=== PATIENT | female | born 1950 | race Caucasian/White ===

== ENCOUNTER 2020-06-19 01:04 | Inpatient (IN) | payer OTHER ==
[~2020-06-19] VITALS: Ht 152.4 cm; Wt 86.2 kg
--- NOTE | 2020-06-19 01:09 | NUR ---
THIS IS A 69F BIB EMS FROM [facility]. PT PRESENTED THERE WITH C/O FATIGUE [id number]. PT BP AT PREVIOUS FACILITY WAS 60'S/PALP. PT WAS GIVEN 2L OF LR, AND LEVO DRIP STARTED. PER CAREFLIGHT DRIP NOW RUNNING AT 19ML/HR COCENTRATION OF 8MG IN 250NS. PT A/O UPON ARRIVAL CONNECTED TO ALL MONITORING.
--- NOTE | 2020-06-19 01:13 | NUR ---
ERP AT BEDSIDE FOR EVAL AND POC
--- NOTE | 2020-06-19 01:13 | NUR ---
PER DR ESTRADA, DC LEVO FROM OUTSIDE FACILITY AND START NEW GTT IF INDICATED
--- NOTE | 2020-06-19 01:19 | NUR ---
PRIOR TO ARRIVAL PT GIVEN ZOSYN, VANCO, LEVO, LR, ATIVAN. CULTURES ALSO DRAWN AT PREVIOUS FACILITY.
[2020-06-19] MEDS ORDERED: LEVOTHYROXINE (01:27)
[2020-06-19] MEDS ORDERED: MONTELUKAST (01:27)
[2020-06-19] MEDS ORDERED: LOSARTAN (01:27)
[2020-06-19] MEDS ORDERED: METFORMIN PO (01:27)
[2020-06-19] MEDS ORDERED: IBUPROFEN (01:27)
[2020-06-19] MEDS ORDERED: SIMVASTATIN (01:27)
[2020-06-19] MEDS ORDERED: ALBUTEROL (01:27)
[2020-06-19] MEDS ORDERED: FLUTICASONE (01:27)
[2020-06-19] MEDS ORDERED: RABEPRAZOLE (01:27)
--- NOTE | 2020-06-19 01:28 | NUR ---
LAB AT BEDSIDE AT THIS TIME
[2020-06-19] MEDS ORDERED: SODIUM CHLORIDE 0.9% 1,000ML IVBOLUS ONE (01:30)
--- NOTE | 2020-06-19 01:38 | NUR ---
PHARMACY CALLED FOR LEVO DRIP, WILL SEND AFTER PHARM VERIFIES
--- NOTE | 2020-06-19 01:39 | NUR ---
PER DR ESTRADA IF BP TRENDS DOWN START LEVO NIESHA
--- NOTE | 2020-06-19 01:40 | NUR ---
PT BECOMING SLIGHTLY MORE DROWSY AND SLOWER TO RESPOND TO QUESTIONS BUT STILL RESPONDING TO VERBAL STIMULI
[2020-06-19 01:46] LABS: MEAN CORPUSCULAR HEMOGLOBIN 26.6 pg (27.0-34.8); MEAN CORPUSCULAR HGB CONC 30.6 g/dL (32.4-35.8); MEAN PLATELET VOLUME 7.8 fL (7.4-10.4); PLATELET COUNT 253 x10^3/uL (130-400); RED BLOOD COUNT 4.37 x10^6/uL (3.82-5.3); RED CELL DISTRIBUTION WIDTH 16.3 % (9.6-15.2)
--- NOTE | 2020-06-19 01:50 | NUR ---
PT BP 87/30 AT THIS TIME Addendum: 06/19/20 at 0153 by [email or web address] LEVO GTT STARTED AT THIS TIME BP IS TRENDING DOWN
[2020-06-19] MEDS: NOREPINEPHRINE 8 MG in SODIUM CHLORIDE 0.9% 242 ML IV PRN ×3 (01:51→20:16)
[2020-06-19 01:58] LABS: MD YES
[2020-06-19 02:01] LABS: ALBUMIN 2.9 g/dL (3.4-5.0); ANION GAP 21 mmol/L (5-15); CALCIUM 8.4 mg/dL (8.5-10.1); CHLORIDE 105 mmol/L (98-107); CREATININE 2.11 mg/dL (0.55-1.02)
[2020-06-19 02:03] LABS: ALKALINE PHOSPHATASE 215 U/L (45-117); TOTAL PROTEIN 6.2 g/dL (6.4-8.2)
--- NOTE | 2020-06-19 02:09 | NUR ---
SON AT BEDSIDE FOR SUPPORT. PT RESTING ON GURNEY HOWEVER VERY DROWSY AT THIS TIME
--- NOTE | 2020-06-19 02:13 | NUR ---
URINE WALKED TO LAB
[2020-06-19] MEDS ORDERED: LACTATED RINGERS 1,000 ML IVBOLUS ONE (02:30)
--- NOTE | 2020-06-19 02:36 | NUR ---
building services technician Kristi requested a new order for AST and ALT for a redraw due insufficent orginal blood draw amount. Provider notified for new order.
[2020-06-19 02:38] LABS: BAND#(MANUAL) 1.57 x10^3/uL; BANDS%(MANUAL) 4 % (0-7); LYMPH#(MANUAL) 1.96 x10^3/uL (1-3.4); LYMPHS% (MANUAL) 5 % (22-44); MONOS#(MANUAL) 3.14 x10^3/uL (0.3-2.7); MONOS% (MANUAL) 8 % (2-9); SEG#(MANUAL) 32.54 x10^3/uL (1.8-6.8); SEGS% (MANUAL) 83 % (42-75)
--- NOTE | 2020-06-19 02:38 | NUR ---
ERP AT BEDSIDE FOR POC AND DISCUSSION WITH FAMILY
[2020-06-19 02:39] LABS: ANISOCYTOSIS 1+; OVALOCYTES 1+
[2020-06-19 02:40] LABS: CRENATED 1+; POLYCHROMASIA 1+
[2020-06-19 02:47] LABS: <PLATELET ESTIMATE> ADEQUATE; <PLT MORPHOLOGY> NORMAL PLT MORPH
--- NOTE | 2020-06-19 02:51 | NUR ---
PT AND FAMILY EDUCATED ON NEED FOR CENTRAL LINE PLACEMENT, PT AND FAMILY AGREE
[2020-06-19 02:56] LABS: MICROSCOPIC INDICATED
--- NOTE | 2020-06-19 02:56 | NUR ---
DR. BELLA AT BEDSIDE FOR ADMIT
[2020-06-19] MEDS ORDERED: HYDROCORTISONE 100 MG INJ. IVPush ONE (03:00)
--- NOTE | 2020-06-19 03:08 | NUR ---
XRAY AT BEDSIDE AT THIS TIME, PT BP INC TO 116/90, LEVO TITRATED DOWN
[2020-06-19] MEDS ORDERED: HYDROCORTISONE 100 MG INJ. ONE (03:09)
--- NOTE | 2020-06-19 03:19 | NUR ---
PT REPOSITIONED TO COMFORT AT THIS TIME
[2020-06-19 03:31] LABS: ALANINE AMINOTRANSFERASE 7495 U/L (12-78)
--- NOTE | 2020-06-19 03:36 | NUR ---
PER DR. ESTRADA HOLD OFF ON CENTRAL LINE FOR NOW. PT RESTING ON GURNEY AT THIS TIME. SON AT BEDSIDE
[2020-06-19] MEDS ORDERED: BISACODYL 10 MG SUPP PR PRN (04:00)
[2020-06-19] MEDS ORDERED: ONDANSETRON 2MG/ML, 2ML IVPush PRN (04:00)
[2020-06-19] MEDS ORDERED: DOCUSATE 100 MG CAPSULE PO PRN (04:00)
[2020-06-19] MEDS ORDERED: CEFTRIAXONE 2 GM in DEXTROSE 5% 50 ML IVPB SCH (04:00)
[2020-06-19] MEDS ORDERED: hydrALAzine 20 MG/ML, 1ML IVPush PRN (04:00)
[2020-06-19] MEDS ORDERED: OXYcodone IR 5MG TABLET PO PRN (04:00)
[2020-06-19] MEDS ORDERED: ACETAMINOPHEN 325 MG TABLET PO PRN (04:00)
[2020-06-19] MEDS ORDERED: PROMETHAZINE 25 MG/ML, 1ML IM PRN (04:00)
[2020-06-19] MEDS ORDERED: POLYETHYLENE GLYCOL 17 GM PACKET PO PRN (04:00)
[2020-06-19] MEDS ORDERED: SODIUM CHLORIDE 0.9% 1,000 ML IV SCH (04:00)
[2020-06-19] MEDS ORDERED: ONDANSETRON ODT 4 MG PO PRN (04:00)
[2020-06-19] MEDS: PIPERACILLIN/TAZO 2.25 GM in DEXTROSE 5% 50 ML IVPB SCH ×3 (04:15→17:38)
--- NOTE | 2020-06-19 04:16 | NUR ---
LEVO TITRATED, ABX STARTED AT THIS TIME, PT INTERACTING WITH STAFF AND SON APPROP Addendum: 06/19/20 at 0431 by [email or web address] ABX SWITCHED PER SHAYNE MCCALLITING NEW MEDS
--- NOTE | 2020-06-19 04:30 | NUR ---
REPORT TO LETTY OSBORNE PT READY FOR TRANSFER OF CARE AFTER LAB
[2020-06-19 05:13] VITALS: BP 113/51
[2020-06-19] MEDS: HEPARIN 5,000 UNITS/ML, 1ML SQ SCH ×2 (05:56→12:09)
[2020-06-19] MEDS: HYDROCORTISONE 100 MG INJ. IVPush SCH ×3 (05:56→21:28)
[2020-06-19] MEDS: INSULIN LISPRO 100 UNITS/ML, PEN SQ-INSULIN SCH ×4 (07:00→21:28)
[2020-06-19 07:34] LABS: ALBUMIN 2.8 g/dL (3.4-5.0); ANION GAP 23 mmol/L (5-15); CALCIUM 8.3 mg/dL (8.5-10.1); CHLORIDE 105 mmol/L (98-107)
[2020-06-19 07:37] LABS: ALKALINE PHOSPHATASE 210 U/L (45-117); BILIRUBIN,TOTAL 3.4 mg/dL (0.2-1.0); CREATINE KINASE, TOTAL 521 U/L (26-192); CREATININE 2.21 mg/dL (0.55-1.02); TOTAL PROTEIN 6.1 g/dL (6.4-8.2); TROPONIN I 0.483 ng/mL (0.000-0.045)
[2020-06-19] MEDS ORDERED: DEXTROSE 50%, 50ML SYRINGE ONE (07:51)
[2020-06-19] MEDS: SODIUM BICARBONATE 8.4% 150 MEQ in DEXTROSE 5% 1,000 ML IV SCH ×2 (07:55→15:54)
[2020-06-19] MEDS ORDERED: SODIUM BICARBONATE 1 MEQ/ML, 50ML VIAL IVPush ONE (08:00)
[2020-06-19] MEDS ORDERED: SODIUM BICARB 8.4%, 50ML SYRINGE ONE (08:12)
[2020-06-19] MEDS ORDERED: SODIUM BICARB 8.4%, 50ML SYRINGE IVPush ONE (08:30)
[2020-06-19] MEDS ORDERED: THIAMINE 500 MG in SODIUM CHLORIDE 0.9% 50 ML IV ONE (09:00)
[2020-06-19 09:19] LABS: ALANINE AMINOTRANSFERASE 9717 U/L (12-78)
[2020-06-19] MEDS ORDERED: FENTANYL PF 100 MCG/2ML IVPush ONE (10:30)
[2020-06-19 12:23] LABS: INTERNATIONAL NORMALIZED RATIO 2.82 (0.93-1.1); PROTHROMBIN TIME 29.6 Seconds (9.6-11.5)
[2020-06-19] MEDS ORDERED: PHYTONADIONE 5 MG in SODIUM CHLORIDE 0.9% 50 ML IV ONE (13:00)
[2020-06-19 13:47] LABS: MEAN CORPUSCULAR HEMOGLOBIN 26.4 pg (27.0-34.8); MEAN CORPUSCULAR HGB CONC 30.4 g/dL (32.4-35.8); MEAN PLATELET VOLUME 8.5 fL (7.4-10.4); PLATELET COUNT 85 x10^3/uL (130-400); RED BLOOD COUNT 3.55 x10^6/uL (3.82-5.3); RED CELL DISTRIBUTION WIDTH 16.1 % (9.6-15.2)
[2020-06-19] MEDS ORDERED: DESMOPRESSIN IVPB ONE (14:00)
[2020-06-19] MEDS ORDERED: SODIUM CHLORIDE 0.9% IVPB ONE (14:00)
[2020-06-19 14:03] LABS: CHLORIDE 101 mmol/L (98-107)
[2020-06-19 14:12] LABS: MD YES
[2020-06-19 14:18] LABS: BAND#(MANUAL) 2.62 x10^3/uL; BANDS%(MANUAL) 6 % (0-7); LYMPH#(MANUAL) 0.44 x10^3/uL (1-3.4); LYMPHS% (MANUAL) 1 % (22-44); MONOS#(MANUAL) 0.87 x10^3/uL (0.3-2.7); MONOS% (MANUAL) 2 % (2-9); SEG#(MANUAL) 39.77 x10^3/uL (1.8-6.8); SEGS% (MANUAL) 91 % (42-75)
[2020-06-19 14:19] LABS: ANISOCYTOSIS 1+
[2020-06-19 14:20] LABS: <PLATELET ESTIMATE> DECREASED; <PLT MORPHOLOGY> NORMAL PLT MORPH; HYPOCHROMIA 1+; OVALOCYTES 1+; POLYCHROMASIA 1+
[2020-06-19 14:23] LABS: PH, VENOUS 7.122 pH (7.320-7.420)
[2020-06-19] MEDS ORDERED: FENTANYL PF 100 MCG/2ML ONE (14:33)
[2020-06-19 14:42] LABS: ALANINE AMINOTRANSFERASE 9371 U/L (12-78); ALBUMIN 2.5 g/dL (3.4-5.0); ALKALINE PHOSPHATASE 207 U/L (45-117); ANION GAP 23 mmol/L (5-15); BILIRUBIN,TOTAL 3.2 mg/dL (0.2-1.0); CREATININE 2.46 mg/dL (0.55-1.02); TOTAL PROTEIN 5.5 g/dL (6.4-8.2); TROPONIN I 0.779 ng/mL (0.000-0.045)
[2020-06-19] MEDS ORDERED: ETOMIDATE 20 MG/10 ML IVPush ONE (15:00)
[2020-06-19] MEDS ORDERED: MIDAZOLAM HCL 50 MG in SODIUM CHLORIDE 0.9% 40 ML IV PRN ×2 (15:00→16:30)
[2020-06-19] MEDS ORDERED: PROPOFOL 100 ML IV PRN (15:00)
[2020-06-19] MEDS ORDERED: MIDAZOLAM 1 MG/ML, 5ML IVPush ONE (15:00)
[2020-06-19 15:15] LABS: D-DIMER 27.7 ug/mlFEU (0.00-0.52)
[2020-06-19] MEDS ORDERED: PHARMACY MAY ADJ FOR RENAL FX MC SCH (16:30)
[2020-06-19] MEDS ORDERED: SENNA/DOCUSATE TABLET NG PRN (16:30)
[2020-06-19] MEDS ORDERED: DEXTROSE 50%, 50ML SYRINGE IVPush PRN (16:30)
[2020-06-19] MEDS ORDERED: FENTANYL PF 100 MCG/2ML IVPush PRN (16:30)
[2020-06-19] MEDS ORDERED: LIDOCAINE-MPF 1%, 2ML ENDO PRN (16:30)
[2020-06-19] MEDS ORDERED: DEXTROSE 4 GM TAB.CHEW PO PRN (16:30)
[2020-06-19] MEDS ORDERED: GLUCAGON 1 MG IM PRN (16:30)
[2020-06-19] MEDS: VASOPRESSIN 20 UNIT in SODIUM CHLORIDE 0.9% 99 ML IV PRN (17:24)
[2020-06-19 18:15] LABS: PH, VENOUS 7.154 pH (7.320-7.420)
[2020-06-19] MEDS: SODIUM CHLORIDE FLUSH 10ML SYR IVF SCH (21:28)
[2020-06-19 21:58] LABS: MEAN CORPUSCULAR HEMOGLOBIN 26.4 pg (27.0-34.8); MEAN PLATELET VOLUME 8.4 fL (7.4-10.4); PLATELET COUNT 57 x10^3/uL (130-400); RED BLOOD COUNT 3.52 x10^6/uL (3.82-5.3); RED CELL DISTRIBUTION WIDTH 16.7 % (9.6-15.2)
[2020-06-19 22:04] LABS: MD YES
[2020-06-19 23:08] LABS: ANISOCYTOSIS 1+; BAND#(MANUAL) 0.43 x10^3/uL; BANDS%(MANUAL) 1 % (0-7); BASOS#(MANUAL) 0.43 x10^3/uL (0-0.1); BASOS% (MANUAL) 1 % (0-1); HYPOCHROMIA 1+; LYMPH#(MANUAL) 2.57 x10^3/uL (1-3.4); LYMPHS% (MANUAL) 6 % (22-44); MONOS#(MANUAL) 0.86 x10^3/uL (0.3-2.7); MONOS% (MANUAL) 2 % (2-9); MYELOCYTES# (MANUAL) 0.43 x10^3/uL (0-0); MYELOCYTES% (MANUAL) 1 % (0-0); OVALOCYTES 1+; POLYCHROMASIA 1+; SEG#(MANUAL) 38.09 x10^3/uL (1.8-6.8); SEGS% (MANUAL) 89 % (42-75)
[2020-06-19 23:09] LABS: <PLATELET ESTIMATE> DECREASED; <PLT MORPHOLOGY> NORMAL PLT MORPH; CRENATED 1+; SCHISTOCYTES 1+
[2020-06-20] MEDS: SODIUM BICARBONATE 8.4% 150 MEQ in DEXTROSE 5% 1,000 ML IV SCH ×2 (00:24→09:47)
[2020-06-20] MEDS ORDERED: NOREPINEPHRINE 32 MG in SODIUM CHLORIDE 0.9% 218 ML IV PRN (00:30)
[2020-06-20] MEDS ORDERED: NOREPINEPHRINE 32 MG in SODIUM CHLORIDE 0.9% 250 ML IV PRN (00:30)
[2020-06-20] MEDS: PIPERACILLIN/TAZO 2.25 GM in DEXTROSE 5% 50 ML IVPB SCH ×2 (02:15→09:46)
[2020-06-20 03:49] LABS: MEAN CORPUSCULAR HEMOGLOBIN 26.7 pg (27.0-34.8); MEAN CORPUSCULAR HGB CONC 31.1 g/dL (32.4-35.8); MEAN PLATELET VOLUME 8.4 fL (7.4-10.4); PLATELET COUNT 61 x10^3/uL (130-400); RED BLOOD COUNT 3.44 x10^6/uL (3.82-5.3); RED CELL DISTRIBUTION WIDTH 15.8 % (9.6-15.2)
[2020-06-20 03:53] LABS: ALBUMIN 2.3 g/dL (3.4-5.0); ANION GAP 24 mmol/L (5-15); CALCIUM 6.3 mg/dL (8.5-10.1); CHLORIDE 98 mmol/L (98-107); CREATININE 1.98 mg/dL (0.55-1.02); INTERNATIONAL NORMALIZED RATIO 3.19 (0.93-1.1); PROTHROMBIN TIME 33.4 Seconds (9.6-11.5)
[2020-06-20] MEDS: HYDROCORTISONE 100 MG INJ. IVPush SCH (04:03)
[2020-06-20 04:20] LABS: ALANINE AMINOTRANSFERASE 10207 U/L (12-78); ALKALINE PHOSPHATASE 283 U/L (45-117); BILIRUBIN,TOTAL 3.3 mg/dL (0.2-1.0); CHOL/HDL RATIO 4.5; CHOLESTEROL, TOTAL 67 mg/dL (140-239); HDL CHOL % 22 % (28-40); HDL CHOLESTEROL (DIRECT) 15 mg/dL (40-60); LDL CHOLESTEROL,CALCULATED 13 mg/dL (54-169); LDL/HDL RATIO 0.9 (0.5-3.0); TOTAL PROTEIN 4.8 g/dL (6.4-8.2); TRIGLYCERIDES 195 mg/dL (50-200); VLDL CHOLESTEROL 39 mg/dL (0-25)
[2020-06-20 05:24] LABS: MD YES
[2020-06-20 05:29] LABS: ANISOCYTOSIS 1+; BAND#(MANUAL) 3.89 x10^3/uL; BANDS%(MANUAL) 11 % (0-7); LYMPH#(MANUAL) 0.35 x10^3/uL (1-3.4); LYMPHS% (MANUAL) 1 % (22-44); MONOS#(MANUAL) 2.48 x10^3/uL (0.3-2.7); MONOS% (MANUAL) 7 % (2-9); SEG#(MANUAL) 28.67 x10^3/uL (1.8-6.8); SEGS% (MANUAL) 81 % (42-75)
[2020-06-20 05:30] LABS: CRENATED 1+; HYPOCHROMIA 1+; OVALOCYTES 1+; POLYCHROMASIA 1+
[2020-06-20 05:33] LABS: <PLATELET ESTIMATE> DECREASED; LARGE PLATELETS 1+
[2020-06-20] MEDS ORDERED: PHYTONADIONE 10 MG in SODIUM CHLORIDE 0.9% 50 ML IV ONE (06:30)
[2020-06-20] MEDS ORDERED: MAGNESIUM SULFATE PMX 2GM/50ML 50 ML IV ONE (06:30)
[2020-06-20] MEDS: INSULIN LISPRO 100 UNITS/ML, PEN SQ-INSULIN SCH ×2 (07:00→11:00)
[2020-06-20] MEDS ORDERED: SODIUM BICARBONATE 4.2%, 5ML ONE (08:07)
[2020-06-20] MEDS ORDERED: SODIUM BICARB 8.4%, 50ML SYRINGE ONE ×2 (08:07→08:42)
[2020-06-20] MEDS ORDERED: CALCIUM CHLORIDE 10%, 10ML SYR ONE (08:07)
[2020-06-20] MEDS ORDERED: SODIUM BICARBONATE 1 MEQ/ML, 50ML VIAL IVPush ONE (08:30)
[2020-06-20] MEDS ORDERED: SODIUM BICARBONATE 1 MEQ/ML, 50ML VIAL IVPush STA (08:44)
[2020-06-20 08:51] LABS: MEAN CORPUSCULAR HEMOGLOBIN 26.8 pg (27.0-34.8); MEAN PLATELET VOLUME 9.2 fL (7.4-10.4); PLATELET COUNT 72 x10^3/uL (130-400); RED BLOOD COUNT 3.22 x10^6/uL (3.82-5.3)
[2020-06-20] MEDS: SODIUM CHLORIDE FLUSH 10ML SYR IVF SCH (09:46)
[2020-06-20 10:15] LABS: MD YES; MEAN CORPUSCULAR HGB CONC 29.8 g/dL (32.4-35.8)
[2020-06-20 10:27] LABS: LYMPH#(MANUAL) 2.42 x10^3/uL (1-3.4); LYMPHS% (MANUAL) 8 % (22-44); MONOS#(MANUAL) 1.81 x10^3/uL (0.3-2.7); MONOS% (MANUAL) 6 % (2-9); SEGS% (MANUAL) 86 % (42-75)
[2020-06-20 10:28] LABS: ANISOCYTOSIS 1+
[2020-06-20 10:29] LABS: <PLATELET ESTIMATE> DECREASED; <PLT MORPHOLOGY> NORMAL PLT MORPH; HYPOCHROMIA 1+; OVALOCYTES 1+
[2020-06-20] MEDS: VASOPRESSIN 20 UNIT in SODIUM CHLORIDE 0.9% 99 ML IV PRN (11:48)
[2020-06-20] MEDS ORDERED: MORPHINE SULFATE 4 MG/ML, 1ML IVPush PRN (13:00)
[2020-06-20] MEDS ORDERED: LORazepam 2 MG/ML, 1ML IV ONE (13:00)
[2020-06-20] MEDS ORDERED: ONDANSETRON 2MG/ML, 2ML IVPush PRN (13:00)
[2020-06-20] MEDS ORDERED: MORPHINE SULFATE 4 MG/ML, 1ML IV ONE (13:00)
[2020-06-20] MEDS ORDERED: LORazepam 2 MG/ML, 1ML IVPush PRN (13:00)
[2020-06-20] MEDS ORDERED: LORazepam 2 MG/ML, 1ML ONE (13:05)
[2020-06-20] MEDS ORDERED: MORPHINE SULFATE 4 MG/ML, 1ML ONE (13:06)
[2020-06-20] MEDS ORDERED: MIDAZOLAM 1 MG/ML, 5ML ONE (21:30)
[2020-06-20] MEDS ORDERED: PROPOFOL 10 MG/ML, 100ML IV ONE (21:30)
[2020-06-20] MEDS ORDERED: ETOMIDATE 20 MG/10 ML ONE (21:30)
== END 2020-06-20 15:47 | disposition expired | DRG 871 ==
LOC: ED 02:17 → EDIP 03:30 → CCU 04:56
PROVIDERS: ADMIT Internal Medicine; ATTEND Hospitalist
PROC: 02HV33Z Insertion of Infusion Device into Superior Vena Cava, Percutaneous Approach (ICD-10-PCS; principal; 2020-06-19)
PROC: B548ZZA Ultrasonography of Superior Vena Cava, Guidance (ICD-10-PCS; 2020-06-19)
PROC: 0BH17EZ Insertion of Endotracheal Airway into Trachea, Via Natural or Artificial Opening (ICD-10-PCS; 2020-06-19)
PROC: 5A1935Z Respiratory Ventilation, Less than 24 Consecutive Hours (ICD-10-PCS; 2020-06-19)
DX: A41.9 Sepsis, unspecified organism (principal); D65 Disseminated intravascular coagulation [defibrination syndrome]; G93.41 Metabolic encephalopathy; I21.A1 Myocardial infarction type 2; J96.01 Acute respiratory failure with hypoxia; K72.00 Acute and subacute hepatic failure without coma; N17.0 Acute kidney failure with tubular necrosis; R65.21 Severe sepsis with septic shock; B17.9 Acute viral hepatitis, unspecified; E87.2 Acidosis; N39.0 Urinary tract infection, site not specified; Z99.11 Dependence on respirator [ventilator] status; D64.9 Anemia, unspecified; D72.823 Leukemoid reaction; E03.9 Hypothyroidism, unspecified; E11.21 Type 2 diabetes mellitus with diabetic nephropathy; E11.649 Type 2 diabetes mellitus with hypoglycemia without coma; E78.5 Hyperlipidemia, unspecified; F17.210 Nicotine dependence, cigarettes, uncomplicated; I11.0 Hypertensive heart disease with heart failure; J45.20 Mild intermittent asthma, uncomplicated; I50.9 Heart failure, unspecified; I48.0 Paroxysmal atrial fibrillation; K75.89 Other specified inflammatory liver diseases; K80.20 Calculus of gallbladder without cholecystitis without obstruction; M79.7 Fibromyalgia; Z20.822 Contact with and (suspected) exposure to COVID-19; Z66 Do not resuscitate; Z51.5 Encounter for palliative care; Z68.37 Body mass index [BMI] 37.0-37.9, adult; Z79.899 Other long term (current) drug therapy
CPT/HCPCS: 36415; 36556; 36600; 70450; 71045; 71250; 74176; 76700; 80053; 80061; 80074; 80299; 80320; 81001; 82105; 82140; 82550; 82803; 82962; 83036; 83605; 83615; 83690; 83735; 84100; 84145; 84156; 84443; 84450; 84460; 84478; 84484; 85025; 85379; 85384; 85610; 86038; 86850; 86900; 87040; 87070; 87081; 87086; 87205; 93005; 93970; 94002; 94003; G0378; J1644; J2250; J2543; J2597; J2704; J3010; J3411; J3430; J7070; C1751; G0480; J1642; J1720; J2060; J2270; J3475; J7030; J7050; J7120